=== PATIENT | male | born 1935 | race Caucasian/White ===

== ENCOUNTER 2016-06-06 12:42 | Emergency (ER) | payer OTHER ==
[2016-06-06] MEDS ORDERED: ONDANSETRON DISINTEGRATING 4 MG TAB PO ONE (12:56)
--- NOTE | 2016-06-06 13:45 | EDPHY ---
HPI/HX/ROS/PE/MDM Narrative: CHIEF COMPLAINT: Nausea/vomiting. HISTORY OF PRESENT ILLNESS: The patient is an 80-year-old male with no previous abdominal history who presents with 5 hours of nausea and vomiting that began when he woke up this morning. His nausea has been intermittent. The vomit has been greenish-orange in color. He has no associated abdominal pain or diarrhea. He had a normal BM earlier today. He has an abdominal hernia that has not been repaired yet but this has not changed in any way. He does have some rhinorrhea but no recent sickness or fever. No chills, chest pain, shortness of breath, palpitations, diarrhea, urinary complaints, headache, lightheadedness. REVIEW OF SYSTEMS: Aside from elements discussed in the HPI, a comprehensive 10-point review of systems was reviewed and is negative. PAST MEDICAL HISTORY: Tonsillectomy, hypertension, idiopathic thrombocytopenia , abdominal hernia. SOCIAL HISTORY: . VITAL SIGNS: Reviewed by me GENERAL: Elderly male, answers questions slowly, resting comfortably in no respiratory distress. HEENT: Atraumatic. Eyes: No icterus, no injection. Mouth: dry mucous membranes. No erythema or lesions. Neck: supple with no adenopathy. LUNGS: Clear to auscultation bilaterally, no wheezes, rhonchi or rales. CARDIAC: Regular rate and rhythm, no rubs, murmurs or gallops. ABDOMEN: Soft, nondistended, bowel sounds normal. Right lower quadrant and mid lower quadrant tenderness. No rebound, no guarding. BACK: No CVA tenderness. EXTREMITIES: No trauma. Range of motion is normal throughout. Trace lower extremity edema bilaterally. NEURO: Alert and oriented, grossly nonfocal. SKIN: Warm and dry, no rash. PSYCHIATRIC: Normal mentation, no agitation. Portions of this note were transcribed by a medical collector. I personally performed a history, physical exam, medical decision making, and confirmed accuracy of information the transcribed note. ED Course: 80-year-old male presents with 5 hours of nausea and vomiting. His vomit has been greenish-orange in nature. He denies fever, diarrhea, recent sickness, or other complaints. He does have an abdominal hernia that he has not had surgically repaired. I think it is possible that this hernia could be causing a bowel complication. On exam he is tender in the right lower and mid lower quadrants. We will obtain a CT of the abdomen/pelvis and blood work. An IV was established. He will be given fluids for rehydration. Zofran 4mg ODT administered in triage. WBC elevated at 22.29. Lactic acid ordered. 1515: CT results conveyed to me by staff radiologist. They report wall thickening of the pylorus consistent with gastritis, stranding in fat, sludge in gallbladder, and fluid collection in left hemiscrotum. I independently reviewed the images on the PACS system. See Imaging section for radiologist report. I have discussed these results with the patient at this time and answered his questions. 1538: Reassessed patient. He is feeling "a lot" better than when he presented and has not vomited in the ED. We discussed the results of his CT scan and blood work. He reports that he has a chronically elevated WBC and usually runs 18-19. He also knows about the scrotal swelling. He reports this is a hydrocele that he has had for years but has grown recently. He has an appointment scheduled on the to set a surgical date. We discussed admission. He would like to go home. We will wait for the urine results to come back. 1gm IV Ceftriaxone administered for UTI (50-182 WBC in urine). Dr. Stephens, patient's product management manager at the [facility], was paged. 1625:Unfortunately, we were not able to discuss the patient his blood work with Dr. Stephens. I did discuss the patient's course with the medical physics researcher from Dr. tsang's office, the patient's primary care physician. Their records demonstrate a WBC of 16.8 in April with no diagnosed reason. He has his annual appointment set up for 1pm tomorrow already. Patient has no further vomiting in the emergency department. After receiving fluid he reports feeling significantly improved. He an his family are comfortable being discharged home. Other laboratory evaluation with the exception of the cyst WBC is largely unremarkable. No signs of severe sepsis. Patient has not had a fever. He was given ceftriaxone IV and discharged with Keflex pending the results of the urine culture. The differential diagnosis for the patient's abdominal discomfort and vomiting was considered included but was not limited to appendicitis, bowel obstruction, gastritis, cholecystitis, hernias, gastritis, and urinary tract infection. - Data Points Imaging Results: Imaging Impressions Abdomen CT 06/06/16 13:57 Impression: 1. Possible gastritis in the pylorus. No evidence for free intraperitoneal air. 2. Sludge in the gallbladder. Mild strain is seen in the mesentery inferior to the liver of unknown etiology. Mild focal fatty infiltration of the liver. 3. Constipation. No CT findings for diverticulitis or appendicitis. 4. Enlarged left scrotum with fluid attenuation, which could represent a large hydrocele or cyst. 5. Splenomegaly. 6. Other chronic findings as above. Results called and discussed with Dr. Katey Najera, on June 06, 2016 at 1521 hours. Laboratory Results: Laboratory Results 06/06/16 13:55 06/06/16 13:55 06/06/16 06/06/16 06/06/16 15:35 15:25 13:55 WBC RBC Hgb Hct MCV MCH MCHC RDW Plt Count MPV Neut % (Auto) Lymph % (Auto) [place] % (Auto) Eos % (Auto) Baso % (Auto) Nucleat RBC Rel Count Absolute Neuts (auto) Absolute Lymphs (auto) Absolute Monos (auto) Absolute Eos (auto) Absolute Basos (auto) Absolute Nucleated RBC Immature Gran % Seg Neutrophils % Band Neutrophils % Lymphocytes % Monocytes % Immature Gran # Absolute Seg Neuts Absolute Band Neuts Absolute Lymphocytes Absolute Monocytes Atypical Lymphocytes Platelet Estimate Giant Platelets Polychromasia Basophilic Stippling Microcytic Cells Tear Drop Cells Elliptocytes Schistocytes Smear Review By VBG Lactic Acid 1.0 mmol/L mmol/L (0.7-2.1) Sodium 143 mEq/L mEq/L (134-144) Potassium 4.6 mEq/L mEq/L (3.5-5.2) Chloride 109 mEq/L mEq/L (97-110) Carbon Dioxide 23 mEq/l mEq/l (22-31) Anion Gap 11 mEq/L mEq/L (8-16) BUN 30 mg/dL H mg/dL (7-23) Creatinine 1.3 mg/dL mg/dL (0.7-1.3) Estimated GFR 53 Glucose 125 mg/dL H mg/dL (70-100) Calcium 9.5 mg/dL mg/dL (8.5-10.4) Total Bilirubin 1.2 mg/dL mg/dL (0.1-1.4) Conjugated Bilirubin 0.5 mg/dL mg/dL (0.0-0.5) Unconjugated Bilirubin 0.7 mg/dL mg/dL (0.0-1.1) AST 23 IU/L IU/L (17-59) ALT 31 IU/L IU/L (21-72) Alkaline Phosphatase 62 IU/L IU/L (38-126) Total Protein 7.1 g/dL g/dL (6.3-8.2) Albumin 4.4 g/dL g/dL (3.5-5.0) Lipase 34.0 IU/L IU/L (23-300) Urine Color YELLOW Urine Appearance MODERATELY TURBID Urine pH 5.0 (5.0-7.5) Ur Specific [place] 1.032 H (1.002-1.030) Urine Protein NEGATIVE (NEGATIVE) Urine Ketones NEGATIVE (NEGATIVE) Urine Blood NEGATIVE (NEGATIVE) Urine Nitrate NEGATIVE (NEGATIVE) Urine Bilirubin NEGATIVE (NEGATIVE) Urine Urobilinogen NEGATIVE EU EU (0.2-1.0) Ur Leukocyte Esterase 3+ H (NEGATIVE) Urine RBC 10-15 /hpf H /hpf (0-3) Urine WBC 50-182 /hpf H /hpf (0-3) Ur Epithelial Cells TRACE /lpf /lpf (NONE-1+) Urine Bacteria TRACE /hpf H /hpf (NONE SEEN) Urine Mucus TRACE /lpf /lpf (NONE-1+) Urine Glucose NEGATIVE (NEGATIVE) 06/06/16 13:55 WBC 22.29 10^3/uL H 10^3/uL (3.80-9.50) RBC 4.79 10^6/uL 10^6/uL (4.40-6.38) Hgb 14.2 g/dL g/dL (13.7-17.5) Hct 45.0 % % (40.0-51.0) MCV 93.9 fL fL (81.5-99.8) MCH 29.6 pg pg (27.9-34.1) MCHC 31.6 g/dL L g/dL (32.4-36.7) RDW 18.4 % H % (11.5-15.2) Plt Count 200 10^3/uL 10^3/uL (150-400) MPV 12.2 fL H fL (8.7-11.7) Neut % (Auto) Not Reported Lymph % (Auto) Not Reported [place] % (Auto) Not Reported Eos % (Auto) Not Reported Baso % (Auto) Not Reported Nucleat RBC Rel Count 0.1 % % (0.0-0.2) Absolute Neuts (auto) Not Reported Absolute Lymphs (auto) Not Reported Absolute Monos (auto) Not Reported Absolute Eos (auto) Not Reported Absolute Basos (auto) Not Reported Absolute Nucleated RBC 0.03 10^3/uL H 10^3/uL (0-0.01) Immature Gran % Not Reported Seg Neutrophils % 68 % % Band Neutrophils % 27 % % Lymphocytes % 3 % % Monocytes % 2 % % Immature Gran # Not Reported Absolute Seg Neuts 15.16 10^/uL H 10^/uL (1.70-6.50) Absolute Band Neuts 6.02 10^3/uL H 10^3/uL (0.00-0.70) Absolute Lymphocytes 0.67 10^3/uL L 10^3/uL (1.00-3.00) Absolute Monocytes 0.45 10^3/uL 10^3/uL (0.30-0.80) Atypical Lymphocytes 3+ H Platelet Estimate ADEQUATE (ADEQ) Giant Platelets PRESENT H Polychromasia 1+ H Basophilic Stippling 1+ H Microcytic Cells 1+ H Tear Drop Cells 1+ H Elliptocytes 1+ H Schistocytes 1+ H Smear Review By Stuart SHAFFER MD VBG Lactic Acid Sodium Potassium Chloride Carbon Dioxide Anion Gap BUN Creatinine Estimated GFR Glucose Calcium Total Bilirubin Conjugated Bilirubin Unconjugated Bilirubin AST ALT Alkaline Phosphatase Total Protein Albumin Lipase Urine Color Urine Appearance Urine pH Ur Specific [place] Urine Protein Urine Ketones Urine Blood Urine Nitrate Urine Bilirubin Urine Urobilinogen Ur Leukocyte Esterase Urine RBC Urine WBC Ur Epithelial Cells Urine Bacteria Urine Mucus Urine Glucose Medications Given: Discontinued Medications Sodium Chloride (Ns) 1,000 mls @ 0 mls/hr IV ONCE ONE PRN Reason: Wide Open Stop: 06/06/16 13:57 Last Admin: 06/06/16 14:02 Dose: 1,000 mls Ceftriaxone Sodium/Dextrose (Rocephin 1 Gm (Premix)) 50 mls @ 100 mls/hr IV EDNOW ONE PRN Reason: Protocol Stop: 06/06/16 16:34 Last Admin: 06/06/16 16:15 Dose: 50 mls Ondansetron HCl (Zofran Odt) 4 mg PO EDNOW ONE Stop: 06/06/16 12:57 Last Admin: 06/06/16 13:01 Dose: 4 mg General Time Seen by Provider: 06/06/16 13:36 Initial Vital Signs: Initial Vital Signs Temperature (C) 36.0 C 06/06/16 12:46 Heart Rate 59 L 06/06/16 12:46 Respiratory Rate 18 06/06/16 12:46 Blood Pressure 155/73 H 06/06/16 12:46 O2 Sat (%) 95 06/06/16 12:46 O2 Delivery Mode Room Air Allergies/Adverse Reactions: No Known Allergies Allergy (Verified 06/06/16 12:53) Home Medications: Medication Instructions Recorded ATENOLOL 01/31/09 Anagrelide 01/31/09 Astelin nasal spray 30ml 01/31/09 CIALIS 01/31/09 SIMVASTATIN 01/31/09 TRIAZOLAM 01/31/09 Uroxatral 01/31/09 Cephalexin [Keflex (RX)] 500 mg PO TID 7 Days 06/06/16 Ondansetron Odt [Zofran Odt 4 mg 4 mg PO Q6 PRN #8 tab 06/06/16 (RX)] Tamsulosin HCl 06/06/16 Departure - Departure Disposition: Home, Routine, Self-Care Clinical Impression: Nausea & vomiting Qualifiers: Vomiting type: unspecified Vomiting Intractability: non-intractable Qualified Code(s): R11.2 - Nausea with vomiting, unspecified Gastritis Qualifiers: Gastritis type: unspecified gastritis Chronicity: acute Gastritis bleeding: presence of bleeding unspecified Qualified Code(s): K29.00 - Acute gastritis without bleeding Leukocytosis Qualifiers: Leukocytosis type: unspecified Qualified Code(s): D72.829 - Elevated white blood cell count, unspecified UTI (urinary tract infection) Qualifiers: Urinary tract infection type: site unspecified Hematuria presence: without hematuria Qualified Code(s): N39.0 - Urinary tract infection, site not specified Condition: Good Instructions: Urinary Tract Infection in Men (ED), Acute Nausea and Vomiting ( ED) Additional Instructions: Follow up with your primary care physician, Dr Cason, tomorrow as scheduled at 1pm. Take Keflex as instructed. Drink plenty of fluids and be sure to get rest. Start with clear fluids for the next 24 hours and then advance diet as tolerable. Return to the emergency department immediately for fever, vomiting not controlled with zofran, diarrhea, or any other serious worsening of condition. You may use Zofran as needed for recurrent nausea and vomiting. Referrals: SKY CASON [Primary Care Provider] - As per Instructions Prescriptions: Cephalexin [Keflex (RX)] 500 mg PO TID 7 Days Ondansetron Odt [Zofran Odt 4 mg (RX)] 4 mg PO Q6 PRN #8 tab PRN Reason: Nausea Report Scribed for: Katey Najera Report Scribed by: Leonel Nazario Date of Report: 06/06/16 Time of Report: 13:37
[2016-06-06] MEDS ORDERED: NS 1,000 ML IV ONE (13:56)
[2016-06-06 14:12] LABS: ABSOLUTE NRBC COUNT 0.03 10^3/uL (0-0.01); ADD DIFF? YES; ADD MORPH? NO; ATYPICAL LYMPHOCYTE FLAG 0 (0-99); FRAGMENT RBC FLAG 20 (0-99); HEMOGLOBIN 14.2 g/dL (13.7-17.5); LEFT SHIFT FLG 50 (0-99); LIPEMIA HEMOLYSIS FLAG 80 (0-99); MEAN CELL HEMOGLOBIN 29.6 pg (27.9-34.1); MEAN CELL HEMOGLOBIN CONCENTR. 31.6 g/dL (32.4-36.7); MEAN CELL VOLUME 93.9 fL (81.5-99.8); MEAN PLATELET VOLUME 12.2 fL (8.7-11.7); NRBC-AUTO% 0.1 % (0.0-0.2); PLATELET CLUMPS FLAG 10 (0-99); PLATELET COUNT 200 10^3/uL (150-400); RED BLOOD CELL COUNT 4.79 10^6/uL (4.40-6.38); RED CELL DISTRIBUTION WIDTH 18.4 % (11.5-15.2)
[2016-06-06 14:19] LABS: ALANINE AMINOTRANSFERASE 31 IU/L (21-72); ALBUMIN 4.4 g/dL (3.5-5.0); ALKALINE PHOSPHATASE 62 IU/L (38-126); ANION GAP 11 mEq/L (8-16); ASPARTATE AMINOTRANSFERASE 23 IU/L (17-59); BILIRUBIN,TOTAL 1.2 mg/dL (0.1-1.4); BILIRUBIN-CONJUGATED 0.5 mg/dL (0.0-0.5); BILIRUBIN-UNCONJUGATED 0.7 mg/dL (0.0-1.1); CALCIUM 9.5 mg/dL (8.5-10.4); CARBON DIOXIDE 23 mEq/l (22-31); CHLORIDE 109 mEq/L (97-110); CREATININE 1.3 mg/dL (0.7-1.3); GLOMERULAR FILTRATION RATE 53; GLUCOSE 125 mg/dL (70-100); POTASSIUM 4.6 mEq/L (3.5-5.2); SODIUM 143 mEq/L (134-144); TOTAL PROTEIN 7.1 g/dL (6.3-8.2)
--- NOTE | 2016-06-06 14:26 | CPEKG ---
Heart Rate: 64 RR Interval: 938 P-R Interval: 176 QRSD Interval: 102 QT Interval: 440 QTC Interval: 454 P [place]: 69 QRS [place]: 62 T Wave [place]: 30 EKG Severity - NORMAL ECG - EKG Impression: SINUS RHYTHM Electronically Signed By: Jesse Maciel 06-Jun-2016 15:29:25
[2016-06-06] MEDS ORDERED: IOPAMIDOL (ISOVUE-300) 100 ML BTL IV ONE (14:34)
[2016-06-06 14:58] LABS: ELLIPTOCYTES 1+; MICROCYTES 1+; PLATELET ESTIMATE ADEQUATE (ADEQ); POLYCHROMASIA 1+; SCHISTOCYTES 1+
[2016-06-06 14:59] LABS: GIANT PLATELETS PRESENT
[2016-06-06 15:44] LABS: COLOR YELLOW; LEUKOCYTE ESTERASE,URINE 3+ (NEGATIVE); NITRITE,URINE NEGATIVE (NEGATIVE)
[2016-06-06 15:51] LABS: MUCUS TRACE /lpf (NONE-1+); WBC,URINE 50-182 /hpf (0-3)
[2016-06-06 16:03] VITALS: BP 142/78; PULSE 64; RESP 16; TEMP 98.1; O2SAT 94
[2016-06-06 16:03] LABS: BACTERIA TRACE /hpf (NONE SEEN)
[2016-06-06 16:46] LABS: ADD SCAN? YES; SCAN POSITIVE
== END 2016-06-06 17:20 | disposition home or self-care (01) ==
DX: K29.00 Acute gastritis without bleeding (principal); D72.829 Elevated white blood cell count, unspecified; N39.0 Urinary tract infection, site not specified; B96.89 Other specified bacterial agents as the cause of diseases classified elsewhere; I10 Essential (primary) hypertension
CPT/HCPCS: 74177; 93005; 96361; 96365; 99285; J0696; Q9967

== ENCOUNTER 2016-10-17 10:59 | Emergency (ER) | payer OTHER ==
[2016-10-17 11:09] VITALS: TEMP 97.5
--- NOTE | 2016-10-17 12:24 | EDPHY ---
H & P Time Seen by Provider: 10/17/16 11:24 HPI/ROS: CHIEF COMPLAINT: Bleeding from surgical site HISTORY OF PRESENT ILLNESS: Patient is an 81-year-old male who presents to the emergency department with ongoing bleeding from his hydrocele surgery 03/06/2013. This was performed [facility] by Dr. Ahuja. Patient states that he has been bleeding since discharge. He states that his scrotal size has remained constant. It is not increased. He has no significant tenderness or discomfort. He has had no fevers or chills. No nausea or vomiting. Patient does not take blood thinner. He is currently taking doxycycline. REVIEW OF SYSTEMS: My complete review of systems is negative except as mentioned in the HPI. Past Medical/Surgical History: Includes high cholesterol, hypertension, ITP, hydrocele Past surgical history: Tonsillectomy, hernia surgery, hydrocele repair Social history: The patient is . He does not smoke. Smoking Status: Never smoked Physical Exam: Vitals noted GENERAL: Well-appearing, in no acute distress, alert. HEENT: Eyes normal to inspection, normal pharynx, no signs of dehydration. NECK: No thyromegaly, no lymphadenopathy, supple. RESPIRATORY: Clear to auscultation bilaterally, no rales, rhonchi or wheezing. CVS: Regular rate and rhythm, no rubs, murmurs, or gallops. ABDOMEN: Soft, nontender, nondistended, no organomegaly. : Patient has an enlarged scrotum. The patient states this is improve from his hydrocele prior to surgery. Is remained the same size. There is significant bruising. Inferior scrotal incision has dehisced centrally. There is slight amount of oozing blood. No palpable mass. BACK: Normal to inspection, no CVA tenderness. SKIN: Normal color, no rash, warm, dry. No pallor. EXTREMITIES: No pedal edema, no joint swelling. NEURO/PSYCH: Alert and oriented, normal mood and affect Constitutional: Initial Vital Signs Temperature (C) 36.4 C 10/17/16 11:06 Heart Rate 65 10/17/16 11:06 Respiratory Rate 18 10/17/16 11:06 Blood Pressure 125/49 H 10/17/16 11:06 O2 Sat (%) 95 10/17/16 11:06 O2 Delivery Mode Room Air Allergies/Adverse Reactions: No Known Allergies Allergy (Verified 10/17/16 11:03) Home Medications: Medication Instructions Recorded ATENOLOL 01/31/09 Anagrelide 01/31/09 Astelin nasal spray 30ml 01/31/09 CIALIS 01/31/09 SIMVASTATIN 01/31/09 TRIAZOLAM 01/31/09 Uroxatral 01/31/09 Ondansetron Odt [Zofran Odt 4 mg 4 mg PO Q6 PRN #8 tab 06/06/16 (RX)] Tamsulosin HCl 06/06/16 CLONAZEPAM 10/17/16 Doxycycline Inj 10/17/16 Finasteride 10/17/16 Medical Decision Making ED Course/Re-evaluation: In the emergency department I discussed possible etiologies with the patient. Answered all his questions. Dr. Ahuja was paged. I was informed by [facility] that Dr. Ahuja is not [employer] today. [facility] [employer] professional [employer] urologist was paged. I was still awaiting call back. I re-paged Dr. Ahuja. Spoke with Dr. Bryant. She recommended the patient just place a dressing over the incision site. Does not feel needs to be repaired at this time. It will heal by secondary intention. She requests follow up with Dr. Ahuja. Patient's hematocrit was 38. I discussed the findings with the patient. I answered all his questions. He is given warnings prior to leaving. He will return with worsening symptoms. Differential Diagnosis: My differential includes but is not limited to surgical complication, wound dehiscence, wound infection, - Data Points Laboratory Results: Laboratory Results 10/17/16 12:40 10/17/16 12:40 10/17/16 10/17/16 10/17/16 13:30 12:40 12:40 WBC 19.07 10^3/uL H 10^3/uL (3.80-9.50) RBC 4.20 10^6/uL L 10^6/uL (4.40-6.38) Hgb 12.1 g/dL L g/dL (13.7-17.5) Hct 38.3 % L % (40.0-51.0) MCV 91.2 fL fL (81.5-99.8) MCH 28.8 pg pg (27.9-34.1) MCHC 31.6 g/dL L g/dL (32.4-36.7) RDW 19.9 % H % (11.5-15.2) Plt Count 213 10^3/uL 10^3/uL (150-400) MPV 11.8 fL H fL (8.7-11.7) Neut % (Auto) Not Reported Lymph % (Auto) Not Reported [place] % (Auto) Not Reported Eos % (Auto) Not Reported Baso % (Auto) Not Reported Nucleat RBC Rel Count 0.2 % % (0.0-0.2) Absolute Neuts (auto) Not Reported Absolute Lymphs (auto) Not Reported Absolute Monos (auto) Not Reported Absolute Eos (auto) Not Reported Absolute Basos (auto) Not Reported Absolute Nucleated RBC 0.03 10^3/uL H 10^3/uL (0-0.01) Immature Gran % Not Reported Seg Neutrophils % 74 % % Band Neutrophils % 12 % % Lymphocytes % 3 % % Monocytes % 2 % % Eosinophils % 4 % % Basophils % 1 % % Metamyelocytes % 4 % % Immature Gran # Not Reported Absolute Seg Neuts 14.11 10^/uL H 10^/uL (1.70-6.50) Absolute Band Neuts 2.29 10^3/uL H 10^3/uL (0.00-0.70) Absolute Lymphocytes 0.57 10^3/uL L 10^3/uL (1.00-3.00) Absolute Monocytes 0.38 10^3/uL 10^3/uL (0.30-0.80) Absolute Eosinophils 0.76 10^3/uL H 10^3/uL (0.03-0.40) Absolute Basophils 0.19 10^3/uL H 10^3/uL (0.02-0.10) Absolute Metamyelocyte 0.76 10^3/mL H 10^3/mL (0.00-0.00) Platelet Estimate ADEQUATE (ADEQ) Polychromasia 1+ H Tear Drop Cells 2+ H Elliptocytes 1+ H Smear Review By Pending PT Pending INR Pending APTT Pending Sodium 142 mEq/L mEq/L (134-144) Potassium 4.3 mEq/L mEq/L (3.5-5.2) Chloride 107 mEq/L mEq/L (97-110) Carbon Dioxide 25 mEq/l mEq/l (22-31) Anion Gap 10 mEq/L mEq/L (8-16) BUN 28 mg/dL H mg/dL (7-23) Creatinine 1.2 mg/dL mg/dL (0.7-1.3) Estimated GFR 58 Glucose 116 mg/dL H mg/dL (70-100) Calcium 9.4 mg/dL mg/dL (8.5-10.4) Departure - Departure Disposition: Home, Routine, Self-Care Clinical Impression: Wound dehiscence Condition: Good Instructions: Wound Dehiscence (ED) Additional Instructions: Continued to apply pressure to your wound site. If you have increased bleeding pulsatile bleeding return to the emergency department. Return with lightheadedness or dizziness. You close follow-up with Dr. Ahuja. Referrals: SKY CASTORENA [Primary Care Provider] - As per Instructions Seymour Beltran [Other] - 5-7 days, call for appt.
[2016-10-17 12:57] LABS: ABSOLUTE NRBC COUNT 0.03 10^3/uL (0-0.01); ADD DIFF? YES; ADD MORPH? NO; ADD SCAN? NO; ATYPICAL LYMPHOCYTE FLAG 0 (0-99); FRAGMENT RBC FLAG 40 (0-99); HEMATOCRIT 38.3 % (40.0-51.0); HEMOGLOBIN 12.1 g/dL (13.7-17.5); LEFT SHIFT FLG 60 (0-99); LIPEMIA HEMOLYSIS FLAG 80 (0-99); MEAN CELL HEMOGLOBIN 28.8 pg (27.9-34.1); MEAN CELL HEMOGLOBIN CONCENTR. 31.6 g/dL (32.4-36.7); MEAN CELL VOLUME 91.2 fL (81.5-99.8); MEAN PLATELET VOLUME 11.8 fL (8.7-11.7); NRBC-AUTO% 0.2 % (0.0-0.2); PLATELET CLUMPS FLAG 0 (0-99); PLATELET COUNT 213 10^3/uL (150-400); RED CELL DISTRIBUTION WIDTH 19.9 % (11.5-15.2)
[2016-10-17 13:23] LABS: ELLIPTOCYTES 1+; PLATELET ESTIMATE ADEQUATE (ADEQ); POLYCHROMASIA 1+
[2016-10-17 13:25] LABS: ANION GAP 10 mEq/L (8-16); CALCIUM 9.4 mg/dL (8.5-10.4); CARBON DIOXIDE 25 mEq/l (22-31); CHLORIDE 107 mEq/L (97-110); CREATININE 1.2 mg/dL (0.7-1.3); GLOMERULAR FILTRATION RATE 58; GLUCOSE 116 mg/dL (70-100); POTASSIUM 4.3 mEq/L (3.5-5.2); SODIUM 142 mEq/L (134-144)
[2016-10-17 13:48] LABS: APTT 32.8 SEC (23.0-38.0); INR 1.31 (0.83-1.16); PROTIME(PATIENT) 16.3 SEC (12.0-15.0)
[2016-10-17 14:02] VITALS: BP 122/52; PULSE 64; RESP 16; O2SAT 97
== END 2016-10-17 14:00 | disposition home or self-care (01) ==
DX: T81.32XA Disruption of internal operation (surgical) wound, not elsewhere classified, initial encounter (principal); I10 Essential (primary) hypertension; Y82.8 Other medical devices associated with adverse incidents

== ENCOUNTER 2017-02-08 12:22 | Inpatient (IN) | payer OTHER ==
--- NOTE | 2017-02-08 12:59 | EDPHY ---
H & P Stated Complaint: Diarrhea x 1 week (dark stool ),with intermittant abdo pain. Time Seen by Provider: 02/08/17 12:59 HPI/ROS: CHIEF COMPLAINT: Dark stool HISTORY OF PRESENT ILLNESS: The patient presents to the emergency department with a 2 day history of dark stool. He has had a 1 week history of loose stool and diarrhea. He did take Pepto-Bismol earlier in the week. He has mild crampy abdominal pain. He has no prior history of GI bleeding. Past surgical history significant only for hernia repair. The patient takes only a baby aspirin on a daily basis. The patient reports an unremarkable colonoscopy several years ago. He was told that further colonoscopies were not indicated based upon his age. The patient denies any fever, cough or congestion. The patient denies additional acute complaints. The patient reports he has been on ibuprofen at night for a long time. REVIEW OF SYSTEMS: A comprehensive 10 point review of systems is otherwise negative aside from elements mentioned in the history of present illness. Source: Patient Exam Limitations: No limitations - Personal History Current Tetanus Diphtheria and Acellular Pertussis (TDAP): Yes - Medical/Surgical History Hx Asthma: No Hx Chronic Respiratory Disease: No Hx Diabetes: No Hx Cardiac Disease: No Hx Renal Disease: Yes Hx Cirrhosis: No Hx Alcoholism: No Hx HIV/AIDS: No Hx Splenectomy or Spleen Trauma: No Other PMH: Tonsillectomy, HTN, Idiopathtic, thrombocytic cytopenia, elevated creatinine. hydrocele/hernia surg. IBS - Social History Smoking Status: Never smoked - Physical Exam Exam: General Appearance: Alert, no distress Eyes: Pupils equal and round no pallor or injection ENT, Mouth: Mucous membranes moist Respiratory: There are no retractions, lungs are clear to auscultation Cardiovascular: Regular rate and rhythm Gastrointestinal: Abdomen is soft and nontender, no masses, bowel sounds normal Rectal: Black colored stool Neurological: A&O, normal motor function, normal sensory exam, normal cranial nerves Skin: Warm and dry, no rashes Musculoskeletal: Neck is supple nontender Extremities: symmetrical, full range of motion Constitutional: Initial Vital Signs Temperature (C) 36.6 C 02/08/17 12:24 Heart Rate 71 02/08/17 12:24 Respiratory Rate 16 02/08/17 12:24 Blood Pressure 117/52 L 02/08/17 12:24 O2 Sat (%) 99 02/08/17 12:24 O2 Delivery Mode Room Air Allergies/Adverse Reactions: No Known Allergies Allergy (Verified 10/17/16 11:03) Home Medications: Medication Instructions Recorded ATENOLOL 01/31/09 Anagrelide 01/31/09 Astelin nasal spray 30ml 01/31/09 CIALIS 01/31/09 SIMVASTATIN 01/31/09 TRIAZOLAM 01/31/09 Uroxatral 01/31/09 Ondansetron Odt [Zofran Odt 4 mg 4 mg PO Q6 PRN #8 tab 06/06/16 (RX)] Tamsulosin HCl 06/06/16 CLONAZEPAM 10/17/16 Doxycycline Inj 10/17/16 Finasteride 10/17/16 Medical Decision Making ED Course/Re-evaluation: The patient presents to the ED for several days of dark stool consistent with melena. The patient has heme-positive black stool on exam. The patient has chronic leukocytosis. The patient is hemodynamically stable. His initial hematocrit is reassuring. The patient received 40 mg of IV Protonix. He has an elevated BUN consistent with an upper GI bleed. Consultation was made with the hospitalist service. The patient will be admitted to the hospital for observation. I re-evaluated the patient at 2:00 p.m.. He is resting comfortably in the room , blood pressure is 110/57 with a heart rate of 69. Differential Diagnosis: Differential diagnosis considered includes upper GI bleed, lower GI bleed, critical anemia, peptic ulcer disease - Data Points Laboratory Results: Laboratory Results 02/08/17 13:08 02/08/17 13:08 02/08/17 02/08/17 02/08/17 13:20 13:08 13:08 WBC 24.58 10^3/uL H 10^3/uL (3.80-9.50) RBC 4.18 10^6/uL L 10^6/uL (4.40-6.38) Hgb 12.5 g/dL L g/dL (13.7-17.5) Hct 38.1 % L % (40.0-51.0) MCV 91.1 fL fL (81.5-99.8) MCH 29.9 pg pg (27.9-34.1) MCHC 32.8 g/dL g/dL (32.4-36.7) RDW 20.7 % H % (11.5-15.2) Plt Count 174 10^3/uL 10^3/uL (150-400) MPV 10.9 fL fL (8.7-11.7) Neut % (Auto) Not Reported Lymph % (Auto) Not Reported Garza % (Auto) Not Reported Eos % (Auto) Not Reported Baso % (Auto) Not Reported Nucleat RBC Rel Count 0.1 % % (0.0-0.2) Absolute Neuts (auto) Not Reported Absolute Lymphs (auto) Not Reported Absolute Monos (auto) Not Reported Absolute Eos (auto) Not Reported Absolute Basos (auto) Not Reported Absolute Nucleated RBC 0.02 10^3/uL H 10^3/uL (0-0.01) Immature Gran % Not Reported Seg Neutrophils % 86 % % Band Neutrophils % 6 % % Lymphocytes % 4 % % Monocytes % 1 % % Metamyelocytes % 3 % % Immature Gran # Not Reported Absolute Seg Neuts 21.14 10^/uL H 10^/uL (1.70-6.50) Absolute Band Neuts 1.47 10^3/uL H 10^3/uL (0.00-0.70) Absolute Lymphocytes 0.98 10^3/uL L 10^3/uL (1.00-3.00) Absolute Monocytes 0.25 10^3/uL L 10^3/uL (0.30-0.80) Absolute Metamyelocyte 0.74 10^3/mL H 10^3/mL (0.00-0.00) Platelet Estimate ADEQUATE (ADEQ) Large Platelets PRESENT H Polychromasia 1+ H Tear Drop Cells 1+ H Elliptocytes 1+ H PT INR Sodium 145 mEq/L H mEq/L (134-144) Potassium 4.8 mEq/L mEq/L (3.5-5.2) Chloride 109 mEq/L mEq/L (97-110) Carbon Dioxide 23 mEq/l mEq/l (22-31) Anion Gap 13 mEq/L mEq/L (8-16) BUN 70 mg/dL H mg/dL (7-23) Creatinine 1.2 mg/dL mg/dL (0.7-1.3) Estimated GFR 58 Glucose 107 mg/dL H mg/dL (70-100) Calcium 9.6 mg/dL mg/dL (8.5-10.4) Total Bilirubin 0.8 mg/dL mg/dL (0.1-1.4) Conjugated Bilirubin 0.3 mg/dL mg/dL (0.0-0.5) Unconjugated Bilirubin 0.5 mg/dL mg/dL (0.0-1.1) AST 29 IU/L IU/L (17-59) ALT 30 IU/L IU/L (21-72) Alkaline Phosphatase 57 IU/L IU/L (38-126) Total Protein 6.3 g/dL g/dL (6.3-8.2) Albumin 3.8 g/dL g/dL (3.5-5.0) Lipase 26 IU/L IU/L (23-300) Stool Occult Bld Scrn POSITIVE H (NEGATIVE) 02/08/17 13:05 WBC RBC Hgb Hct MCV MCH MCHC RDW Plt Count MPV Neut % (Auto) Lymph % (Auto) Garza % (Auto) Eos % (Auto) Baso % (Auto) Nucleat RBC Rel Count Absolute Neuts (auto) Absolute Lymphs (auto) Absolute Monos (auto) Absolute Eos (auto) Absolute Basos (auto) Absolute Nucleated RBC Immature Gran % Seg Neutrophils % Band Neutrophils % Lymphocytes % Monocytes % Metamyelocytes % Immature Gran # Absolute Seg Neuts Absolute Band Neuts Absolute Lymphocytes Absolute Monocytes Absolute Metamyelocyte Platelet Estimate Large Platelets Polychromasia Tear Drop Cells Elliptocytes PT 16.0 SEC H SEC (12.0-15.0) INR 1.26 H (0.83-1.16) Sodium Potassium Chloride Carbon Dioxide Anion Gap BUN Creatinine Estimated GFR Glucose Calcium Total Bilirubin Conjugated Bilirubin Unconjugated Bilirubin AST ALT Alkaline Phosphatase Total Protein Albumin Lipase Stool Occult Bld Scrn Departure - Departure Disposition: [facility] Inpatient Acute Clinical Impression: Upper GI bleed Condition: Fair Referrals: SKY CASTORENA [Primary Care Provider] - As per Instructions
[2017-02-08 13:15] LABS: ABSOLUTE NRBC COUNT 0.02 10^3/uL (0-0.01); ADD DIFF? YES; ADD MORPH? YES; ADD SCAN? NO; ATYPICAL LYMPHOCYTE FLAG 0 (0-99); FRAGMENT RBC FLAG 40 (0-99); HEMATOCRIT 38.1 % (40.0-51.0); HEMOGLOBIN 12.5 g/dL (13.7-17.5); LEFT SHIFT FLG 50 (0-99); LIPEMIA HEMOLYSIS FLAG 80 (0-99); MEAN CELL HEMOGLOBIN 29.9 pg (27.9-34.1); MEAN CELL HEMOGLOBIN CONCENTR. 32.8 g/dL (32.4-36.7); MEAN CELL VOLUME 91.1 fL (81.5-99.8); MEAN PLATELET VOLUME 10.9 fL (8.7-11.7); NRBC-AUTO% 0.1 % (0.0-0.2); PLATELET CLUMPS FLAG 10 (0-99); PLATELET COUNT 174 10^3/uL (150-400); RED BLOOD CELL COUNT 4.18 10^6/uL (4.40-6.38)
[2017-02-08 13:20] LABS: RED CELL DISTRIBUTION WIDTH 20.7 % (11.5-15.2)
[2017-02-08 13:36] LABS: ALANINE AMINOTRANSFERASE 30 IU/L (21-72); ALBUMIN 3.8 g/dL (3.5-5.0); ALKALINE PHOSPHATASE 57 IU/L (38-126); ANION GAP 13 mEq/L (8-16); ASPARTATE AMINOTRANSFERASE 29 IU/L (17-59); BILIRUBIN,TOTAL 0.8 mg/dL (0.1-1.4); BILIRUBIN-CONJUGATED 0.3 mg/dL (0.0-0.5); BILIRUBIN-UNCONJUGATED 0.5 mg/dL (0.0-1.1); CALCIUM 9.6 mg/dL (8.5-10.4); CARBON DIOXIDE 23 mEq/l (22-31); CHLORIDE 109 mEq/L (97-110); CREATININE 1.2 mg/dL (0.7-1.3); GLOMERULAR FILTRATION RATE 58; GLUCOSE 107 mg/dL (70-100); POTASSIUM 4.8 mEq/L (3.5-5.2); SODIUM 145 mEq/L (134-144); TOTAL PROTEIN 6.3 g/dL (6.3-8.2)
[2017-02-08 13:46] LABS: INR 1.26 (0.83-1.16)
[2017-02-08 13:47] LABS: PLATELET ESTIMATE ADEQUATE (ADEQ)
[2017-02-08 13:48] LABS: LARGE PLATELETS PRESENT
[2017-02-08 13:50] LABS: ELLIPTOCYTES 1+; POLYCHROMASIA 1+
[2017-02-08] MEDS ORDERED: PANTOPRAZOLE SODIUM 40 MG VIAL IVP ONE (13:51)
[2017-02-08] MEDS ORDERED: ACETAMINOPHEN 325 MG TAB PO PRN (15:24)
[2017-02-08] MEDS ORDERED: ONDANSETRON DISINTEGRATING 4 MG TAB PO PRN (15:24)
[2017-02-08] MEDS ORDERED: ONDANSETRON 4 MG/2 ML VIAL IVP PRN (15:24)
[2017-02-08] MEDS ORDERED: 1/2 NS 1,000 ML IV SCH (15:30)
--- NOTE | 2017-02-08 15:48 | GHP ---
[f rep st] HISTORY AND PHYSICAL DATE OF ADMISSION: 02/08/2017 CHIEF COMPLAINT: Melena. HISTORY OF PRESENT ILLNESS: An 81-year-old male with no previous history of gastrointestinal bleedin g or gastrointestinal problems. He presents with 1 week of occasional melena. He has also had some watery-type stools. He has also had abdominal pain associated with some urgency. He takes aspirin d aily, which he has been doing for 25 years. He also takes some ibuprofen at night which he has also been on for some time. No dizziness or chest pain. He has had some mild weight loss over the last y ear or so. REVIEW OF SYSTEMS: A 10-point review of systems was obtained, and other than what was stated, was farida mac. PAST MEDICAL HISTORY: 1. Hypertension. 2. Gout. 3. 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 4. BPH. SOCIAL HISTORY: No smoking. Very occasional alcohol. He is . FAMILY HISTORY: Reviewed and not contributory. PHYSICAL EXAMINATION: VITAL SIGNS: Afebrile, blood pressure is 117/52, heart rate 71, oxygen satura tion 99% on room air. GENERAL: The patient is well developed in no apparent distress. HEENT: Neris cteric sclerae. Extraocular movements intact. Moist mucous membranes. NECK: Supple. No thyromega ly. LUNGS: Good effort. Clear to auscultation bilaterally. CARDIOVASCULAR: Regular rate and rhyt hm. No murmurs, rubs, or gallops. ABDOMEN: Positive bowel sounds. Soft, nontender, nondistended. No hepatosplenomegaly. EXTREMITIES: No clubbing, cyanosis, or edema. SKIN: Without rash. Warm, dry, intact. NEUROLOGIC: Moving all 4 extremities equally. PSYCHIATRIC: Normal mood and affect. LABORATORY DATA: White blood cell count elevated at 24,000 but it was 22,000 six months ago. Hemogl obin is 12 and platelets are 134. Sodium 145. BUN is elevated at 70 with a normal creatinine of 1.2 . Stool for occult blood is positive. ASSESSMENT: This is an 81-year-old male presenting with probable upper gastrointestinal bleed. PLAN: 1. Upper gastrointestinal bleed. The patient is hemodynamically stable. He does have an elevated B UN suggesting an upper bleed. We will admit this patient overnight. We will discuss with GI probabl y for a possible EGD in the morning. We will start Protonix. Hold his aspirin. 2. Mild anemia. We will see if this decreases with fluid. 3. Hypertension. We will continue his atenolol with some holding parameters. 4. Elevated white blood cell count. This appears to be chronic. /[id number]/MODL
[2017-02-08] MEDS: ANAGRELIDE HCL 0.5 MG PO SCH (20:12)
[2017-02-08] MEDS: PANTOPRAZOLE SODIUM 40 MG VIAL IVP SCH (20:25)
[2017-02-08] MEDS: IPRATROPIUM 0.06% NASAL SPRAY EACHNARE SCH (20:27)
[2017-02-08] MEDS: TRIAZOLAM 0.25 MG TAB PO PRN (22:30)
[2017-02-09 05:43] LABS: ALANINE AMINOTRANSFERASE 25 IU/L (21-72); ALBUMIN 2.9 g/dL (3.5-5.0); ALKALINE PHOSPHATASE 50 IU/L (38-126); ANION GAP 10 mEq/L (8-16); ASPARTATE AMINOTRANSFERASE 18 IU/L (17-59); BILIRUBIN,TOTAL 0.8 mg/dL (0.1-1.4); CALCIUM 9.1 mg/dL (8.5-10.4); CARBON DIOXIDE 23 mEq/l (22-31); CHLORIDE 111 mEq/L (97-110); CREATININE 1.3 mg/dL (0.7-1.3); GLOMERULAR FILTRATION RATE 53; GLUCOSE 79 mg/dL (70-100); POTASSIUM 3.9 mEq/L (3.5-5.2); SODIUM 144 mEq/L (134-144); TOTAL PROTEIN 4.9 g/dL (6.3-8.2)
[2017-02-09 05:50] LABS: ABSOLUTE NRBC COUNT 0.03 10^3/uL (0-0.01); ADD DIFF? YES; ATYPICAL LYMPHOCYTE FLAG 0 (0-99); FRAGMENT RBC FLAG 40 (0-99); HEMATOCRIT 29.4 % (40.0-51.0); HEMOGLOBIN 9.5 g/dL (13.7-17.5); LEFT SHIFT FLG 70 (0-99); LIPEMIA HEMOLYSIS FLAG 80 (0-99); MEAN CELL HEMOGLOBIN 29.6 pg (27.9-34.1); MEAN CELL HEMOGLOBIN CONCENTR. 32.3 g/dL (32.4-36.7); MEAN CELL VOLUME 91.6 fL (81.5-99.8); MEAN PLATELET VOLUME 11.2 fL (8.7-11.7); NRBC-AUTO% 0.2 % (0.0-0.2); PLATELET CLUMPS FLAG 20 (0-99); PLATELET COUNT 160 10^3/uL (150-400); RED BLOOD CELL COUNT 3.21 10^6/uL (4.40-6.38)
[2017-02-09 05:54] LABS: RED CELL DISTRIBUTION WIDTH 20.2 % (11.5-15.2)
[2017-02-09 05:55] LABS: ADD MORPH? NO; ADD SCAN? NO
[2017-02-09 06:22] LABS: PLATELET ESTIMATE ADEQUATE (ADEQ)
[2017-02-09 06:23] LABS: MACROCYTES 1+
[2017-02-09] MEDS: ANAGRELIDE HCL 0.5 MG PO SCH ×2 (08:52→19:52)
[2017-02-09] MEDS: ALLOPURINOL 300 MG TAB PO SCH (08:52)
[2017-02-09] MEDS: PANTOPRAZOLE SODIUM 40 MG VIAL IVP SCH ×2 (08:52→19:38)
[2017-02-09] MEDS: TAMSULOSIN HCL 0.4 MG CAP PO SCH (08:52)
[2017-02-09] MEDS: FINASTERIDE 5 MG TAB PO SCH (08:52)
[2017-02-09] MEDS: ATENOLOL 50 MG TAB PO SCH (08:53)
--- NOTE | 2017-02-09 09:31 | HOSPPROG ---
Hospitalist Progress Note Assessment/Plan: Patient is an 81 y/o male who has had some intermittent melena. Today is my first encounter w the patient, chart reviewed. *Upper GI bleed -h/h have trended down -s/p endoscopy which showed an esophageal ulcer, small hiatal hernia -will need ppi bid x 2 months *anemia -will recheck an H & H to assure stability *HTN -110/69 *leukocytosis -has been high since May -should get further f/u with PCP in OP setting *plan. Reviewed his care with Dr Panda/ the patient lost quite a bit of blood and should be monitored overnight for stability. Will continue clears tonight and if stable, will initiate reg diet in the morning. He will require another midnight stay making him IP. Subjective: Nicholas is feeling well, has no complaints. Objective: Vital Signs Temp Pulse Resp BP Pulse Ox 36.7 C 71 16 110/69 96 02/09/17 08:20 02/09/17 08:53 02/09/17 08:20 02/09/17 08:53 02/09/17 08:20 Laboratory Results 02/09/17 04:27 02/09/17 04:27 02/08/17 02/09/17 02/10/17 05:59 05:59 05:59 Intake Total 350 Balance 350 PT 16.0 SEC (12.0-15.0) H 02/08/17 13:05 INR 1.26 (0.83-1.16) H 02/08/17 13:05 - Physical Exam Constitutional: no apparent distress, appears nourished, not in pain Eyes: PERRL Ears, Nose, Mouth, Throat: hearing normal Cardiovascular: regular rate and rhythym Respiratory: no respiratory distress Gastrointestinal: normoactive bowel sounds Skin: warm, No normal color (pale) Musculoskeletal: full muscle strength Neurologic: AAOx3 Psychiatric: interacting appropriately ICD10 Worksheet Patient Problems: Problems Problem Status Onset Upper GI bleed Acute
--- NOTE | 2017-02-09 09:55 | PDANEPAE ---
ANE History of Present Illness EGD for tarry stools, anemia ANE Past Medical History - Cardiovascular History Hx Hypertension: Yes - Pulmonary History Hx Oxygen in Use at Home: No Hx Sleep Apnea: No Sleep Apnea Screening Result - Last Documented: Positive - Endocrine History Hx Diabetes: No Hypothyroid: No Obesity: no - GI History Hx Gastrointestinal Disorders: Yes Gastrointestinal History Comment: IBS - Chronic Pain History Chronic Pain: No ANE Review of Systems Review of Systems: ANE Patient History - Allergies Allergies/Adverse Reactions: No Known Allergies Allergy (Verified 10/17/16 11:03) - Home Medications Home Medications: Anagrelide HCl 0.5 mg PO BID 01/31/09 [Last Taken 02/07/17 21:00] Atenolol [Tenormin 50 mg (*)] 50 mg PO DAILY 01/31/09 [Last Taken 02/07/17] Triazolam [Halcion 0.25MG (*)] 0.125 - 0.25 mg PO HS 01/31/09 [Last Taken 0.125mg] Tamsulosin HCl [Flomax 0.4 MG (*)] 0.4 mg PO DAILY 06/06/16 [Last Taken 02/07/17 ] Finasteride [Proscar 5 MG (*)] 5 mg PO DAILY 10/17/16 [Last Taken 02/07/17] Allopurinol [Allopurinol 300 MG (RX)] 300 mg PO DAILY 02/08/17 [Last Taken 02/07] Ascorbic Acid [Vitamin C 500 mg (*)] 500 mg PO DAILY 02/08/17 [Last Taken Unknown] Aspirin [Aspirin 81mg (*)] 81 mg PO DAILY 02/08/17 [Last Taken 02/07/17] Calcium Carbonate [Oyster Shell Calcium 500 mg (*)] 500 mg PO DAILY 02/08/17 [ Last Taken Unknown] Cyanocobalamin [Vitamin B12 (*)] 1,000 mcg PO DAILY 02/08/17 [Last Taken Unknown ] Hydrocortisone/Iodoquinol [Hydrocortisone-Iodoquinol Crm] 1 mariluz TP DAILY [Last Taken Unknown] Ibuprofen [Motrin (*)] 200 mg PO DAILY PRN 02/08/17 [Last Taken Unknown] Ipratropium 0.06% Nasal [Atrovent 0.06% Nasal (RX)] 2 sprays EACHNARE BID [Last Taken 02/07/17 21:00] Multivitamins [Multivitamin (*)] 1 each PO DAILY 02/08/17 [Last Taken Unknown] - NPO status NPO Since - Liquids (Date): 02/09/17 NPO Since - Liquids (Time): 00:00 NPO Since - Solids (Date): 02/09/17 NPO Since - Solids (Time): 00:00 - Anes Hx Anes Hx: no prior problems - Smoking Hx Smoking Status: Never smoked Marijuana use: Yes - Alcohol Use Alcohol Use: Occasionally (3 drinks/week) - Family Anes Hx Family Anes Hx: none ANE Labs/Vital Signs - Labs Result Diagrams: 02/09/17 04:27 02/09/17 04:27 - Vital Signs Blood Pressure: 110/69 Heart Rate: 71 Respiratory Rate: 16 O2 Sat (%): 96 Height: 180.34 cm Weight: 72.575 kg ANE Physical Exam - Airway Neck exam: FROM Mallampati Score: Class 3 Mouth exam: normal dental/mouth exam - Pulmonary Pulmonary: clear to auscultation - Cardiovascular Cardiovascular: regular rate and rhythym - ASA Status ASA Status: III ANE Anesthesia Plan Anesthesia Plan: GA with mask
[2017-02-09] MEDS ORDERED: PROPOFOL 200 MG/20 ML VIAL ONE (10:06)
[2017-02-09] MEDS ORDERED: LR 1,000 ML IV ONE (10:14)
[2017-02-09] MEDS ORDERED: NALOXONE HCL 0.4 MG/ML INJ IVP PRN (10:36)
--- NOTE | 2017-02-09 11:29 | GIREPORT ---
[facility] - Endoscopy Department Patient Name: Calderon Ybarra Procedure Date: 02/09/2017 9:32 AM Patient Type: Inpatient Attending MD/ ER Physician: Jeovanny Panda MD Procedure: Upper GI endoscopy Indications: Melena, Acute post hemorrhagic anemia Providers: Jeovanny Panda MD Medicines: Propofol per Anesthesia Complications: No immediate complications. Description of Procedure: After obtaining informed consent, the endoscope was passed under direct vision. Throughout the procedure, the patient's blood pressure, pulse, and oxygen saturations were monitored continuously. The Endoscope was intro duced through the mouth, and advanced to the second part of duodenum. The [facility] er GI endoscopy was accomplished without difficulty. The patient tolerated th e procedure well. Findings: One cratered esophageal ulcer with oozing blood and stigmata of recent bleeding was found at the gastroesophageal junction. The lesion was 10 mm in largest dimension. For hemostasis, two hemostatic clips were successful ly placed. There was no bleeding at the end of the procedure. A small hiatal hernia was present. The entire examined stomach was normal. The examined duodenum was normal. Estimated Blood Loss: Estimated blood loss: none. Post Op Diagnosis: - Bleeding esophageal ulcer. Clips were placed. - Small hiatal hernia. - Normal stomach. - Normal examined duodenum. - No specimens collected. Recommendation: - [facility]. - Clear liquid diet today. - Use Protonix (pantoprazole) 40 mg PO BID for 2 months. - Serial H/H. Attending Participation: I personally performed the entire procedure. Jeovanny Panda MD Jeovanny Panda MD 02/09/2017 11:29:19 AM This report has been signed electronicallyJoharvinder Panda MD Number of Addenda: 0 Note Initiated On: 02/09/2017 9:32 AM [email or web address]
[2017-02-09] MEDS: IPRATROPIUM 0.06% NASAL SPRAY EACHNARE SCH ×2 (11:35→22:30)
[2017-02-09 12:58] LABS: HEMATOCRIT 33.9 % (40.0-51.0); HEMOGLOBIN 11.1 g/dL (13.7-17.5)
--- NOTE | 2017-02-09 13:57 | GCON ---
[f rep st] CONSULTATION GI CONSULTATION DATE OF CONSULTATION: 02/08/2017 REASON FOR CONSULTATION: Melena and post hemorrhagic anemia. HISTORY OF PRESENT ILLNESS: Calderon is an 81-year-old gentleman who was admitted to the hospital last night with melena. I was asked to see him by Dr. Curry for GI consultation. The patient states that he has developed occasional black stool over the last week, which has been watery. He has denied any heartburn, indigestion, dysphagia, or abdominal pain. He does take a baby aspirin daily and takes 800 mg of ibuprofen at night for sleep. He has done so for over a year. He does have a history of dysphagia and underwent an esophagogastroduodenoscopy by Dr. Sajan Berg on 07/08/2015 at which time he was noted to have esophagitis. His last colonoscopy was performed on 05/29/[address] Berg at which time he was noted to have left-sided diverticulosis. He does have a remote history of colon polyps. MEDICATIONS: Prior to admission included, atenolol, anagrelide, Cialis p.r.n., simvastatin, triazolam, Uroxatral, tamsulosin, clonazepam, finasteride. ALLERGIES: He has no known drug allergies. PAST MEDICAL HISTORY: Significant for hypertension, gout, history of on known hematologic disorder with chronic thrombocytosis and leukocytosis and benign prostatic hypertrophy. PAST SURGICAL HISTORY: Significant for EGD in 2015 and colonoscopy in 2012 as noted above. FAMILY HISTORY: Negative for GI malignancies or PUD. SOCIAL HISTORY: He does not consumes a significant quantity of alcohol. He does not smoke tobacco. He is and resides with his spouse in [place]. He is retired. REVIEW OF SYSTEMS: Were significant for melena prior to admission, but otherwise negative for comprehensive review of systems. EXAMINATION: VITAL SIGNS: Today, temperature 36.6 Celsius, pulse 66 and regular, blood pressure is 94/47, respiratory rate 19, O2 saturation 96% on room air. GENERAL: A well-developed, well-nourished male in no apparent distress. INTEGUMENT: Clear. Nail beds pale. HEENT: Head atraumatic, normocephalic. Pupils equal, round, reactive to light. EOMs were intact. Sclerae nonicteric. Nares were patent. Mucous membranes moist. Dentition fair. NECK: Supple. Trachea was midline. LYMPHATICS: No cervical or axillary adenopathy. PULMONARY: Lungs were clear to percussion and auscultation. CARDIOVASCULAR: Regular rhythm and rate. Normal S1, S2 without murmur. Peripheral pulses strong bilaterally. No pedal edema. GASTROINTESTINAL: Abdomen supple, positive bowel sounds. No liver or spleen tip palpable. No masses or tenderness noted. No fluid wave noted. EXTREMITIES : Without deformity. NEUROLOGIC: Patient was alert, oriented x3. There were no focal neurologic deficits. LABS: Hemoglobin on admission 12.5 with hydration. Hemoglobin is 9.5 this morning. Hematocrit was 38.1 on admission, now 29.4. His white count 24.58 on admission and 17.25 today. His platelet count 160,000. Pro-time 16.0, INR 1.26. Electrolytes normal with BUN 65, creatinine 1.3. LFTs normal. Stool is Hemoccult positive. IMPRESSION: 1. Gastrointestinal bleed with melena and post hemorrhagic anemia-likely upper gastrointestinal source and likely chronic non-steroidal anti-inflammatory drug use as a contributing factor. 2. Unclear hematologic abnormality with history of chronic thrombocytosis and leukocytosis with continued leukocytosis, albeit platelets normalized. 3. Essential hypertension. 4. Gout. 5. Benign prostatic hypertrophy. RECOMMENDATIONS: 1. IV PPI drip. 2. Serial H and H. 3. Would recommend an esophagogastroduodenoscopy urgently today due to the patient's interval drop in hemoglobin. Due to the patient's advanced age, would recommend this be performed with propofol anesthesia due to higher risk of complications. /[id number]/MODL MTDD
--- NOTE | 2017-02-09 17:27 | ASMTCMCOM ---
CM Note CM Note Notes: Spoke w/RN, anticipate pt will dc home w/support of when medically stable. CM available for any changes. Date Signed: 02/09/2017 05:27 PM Electronically Signed By:Haritha Perla RN
[2017-02-09] MEDS: TRIAZOLAM 0.25 MG TAB PO PRN (19:38)
[2017-02-10 04:53] LABS: HEMATOCRIT 26.9 % (40.0-51.0); HEMOGLOBIN 8.6 g/dL (13.7-17.5)
[2017-02-10 07:58] VITALS: RESP 16
[2017-02-10] MEDS: ALLOPURINOL 300 MG TAB PO SCH (08:11)
[2017-02-10] MEDS: ANAGRELIDE HCL 0.5 MG PO SCH (08:11)
[2017-02-10] MEDS: ATENOLOL 50 MG TAB PO SCH (08:11)
[2017-02-10] MEDS: PANTOPRAZOLE SODIUM 40 MG VIAL IVP SCH (08:12)
[2017-02-10] MEDS: TAMSULOSIN HCL 0.4 MG CAP PO SCH (08:12)
[2017-02-10] MEDS: FINASTERIDE 5 MG TAB PO SCH (08:12)
--- NOTE | 2017-02-10 08:56 | POSTANESTH ---
Post Anesthetic Evaluation Cardiovascular Status: Similar to Pre-Op Cond Respiratory Status: Similar to Pre-op Cond. Level of Consciousness/Mental Status: Can Participate in Eval Pain Control: Adequate, Prn Tx Ordered Nausea/Vomiting Control: Adequate, Prn Tx Ordered Complications Possibly Related to Anesthesia: None Noted ([id number])
--- NOTE | 2017-02-10 09:10 | HOSPPROG ---
Hospitalist Progress Note Assessment/Plan: Patient is an 81 y/o male who has had some intermittent melena. Today is my first encounter w the patient, chart reviewed. *Upper GI bleed -h/h have trended down -s/p endoscopy which showed an esophageal ulcer, small hiatal hernia -will need ppi bid x 2 months *anemia -H & H dropped overnight -will recheck, cont cl liquids *HTN -107/41 *leukocytosis -has been high since May -should get further f/u with PCP in OP setting *plan. recheck h/h and if stable; dc home and cont ppi x2 months/repeat labs w his pcp in one week Subjective: Nicholas is feeling well, no complaints. Objective: Vital Signs Temp Pulse Resp BP Pulse Ox 36.9 C 80 16 107/41 L 95 02/10/17 07:56 02/10/17 08:11 02/10/17 07:56 02/10/17 08:11 02/10/17 07:56 Laboratory Results 02/10/17 04:31 02/09/17 02/10/17 02/11/17 05:59 05:59 05:59 Intake Total 100 Balance 100 PT 16.0 SEC (12.0-15.0) H 02/08/17 13:05 INR 1.26 (0.83-1.16) H 02/08/17 13:05 - Physical Exam Constitutional: no apparent distress, appears nourished, not in pain Eyes: PERRL Ears, Nose, Mouth, Throat: hearing normal Cardiovascular: regular rate and rhythym Respiratory: no respiratory distress Gastrointestinal: normoactive bowel sounds Skin: warm Musculoskeletal: full muscle strength Neurologic: AAOx3 Psychiatric: interacting appropriately, not anxious ICD10 Worksheet Patient Problems: Problems Problem Status Onset Upper GI bleed Acute
[2017-02-10 09:48] LABS: HEMATOCRIT 30.2 % (40.0-51.0)
[2017-02-10] MEDS: IPRATROPIUM 0.06% NASAL SPRAY EACHNARE SCH (10:11)
--- NOTE | 2017-02-10 10:33 | PDMN ---
Medical Necessity Medical necessity: change to IP; los>2mn for UGIB, w/h&h trending down s/p EGD; requires further monitoring r/t significant blood loss, advancement of diet when stable; comorbid HTN, heme disease w/elevated wbc, plt; per order and progress note 02/09/17
[2017-02-10 11:09] VITALS: BP 109/50; PULSE 78; TEMP 98; O2SAT 98
--- NOTE | 2017-02-10 18:10 | ASDISCHSUM ---
Discharge Information Plan Status:Home with No Needs Medically Cleared to Leave: Discharge Date:02/10/2017 11:57 AM CM D/C Disposition:Home, Routine, Self-Care ADT D/C Disposition:Home, Routine, Self-Care Projected Discharge Date:02/10/2017 11:57 AM Transportation at D/C: Discharge Delay Reason: Follow-Up Date:02/10/2017 11:57 AM Discharge Slot: Final Diagnosis: Placement Information Patient Contact Information Contact Name:MARISA Relationship: Address:[address] City:[place] Alternate Phone: [facility]/Zip Code:[place] [address] Email: Financial Information Financial Class: Primary Plan Desc:MEDICARE INPATIENT Primary Plan Number:[id number] Secondary Plan Desc:[employer]OT[employer] PPO [employer] Secondary Plan Number:[id number] Assessment Information [facility] CM Progress Note CM Note CM Note Notes: Spoke w/RN, anticipate pt will dc home w/support of when medically stable. CM available for any changes. Date Signed: 02/09/2017 05:27 PM Electronically Signed By:Haritha Perla RN Intervention Information Intervention Type:*CHAVEZ-Signed Date of Service:02/09/2017 11:58 AM Patient Type:Observation Staff Member:Digna Parikh Hours: Discipline: Severity: Comment: Intervention Type:*Occurence 72 Date of Service:02/10/2017 02:50 PM Patient Type:Inpatient Staff Member:ALONZO Garces, Phyllis Hours: Discipline: Severity: Comment:
--- NOTE | 2017-02-11 02:44 | GDS ---
[f rep st] DISCHARGE SUMMARY DISCHARGE DIAGNOSES: 1. Upper gastrointestinal bleed. 2. Anemia from this. 3. Hypertension. 4. Leukocytosis. CONSULTATION: Jeovanny Panda MD, with [facility]. HISTORY OF PRESENT ILLNESS: Briefly, the patient is an 81-year-old male with no previous history of GI bleeds. He had 1 week of occasional melena. He also had some watery type stools. He takes ibuprofen. Also, he is on aspirin. He was seen and evaluated by Dr. Panda and on 02/09, he had an upper GI endoscopy, which showed a bleeding esophageal ulcer. Clips were placed. It is also noted that he had a small hiatal hernia. He was treated with clear liquids and PPI. The recommendation is for him to stay on a PPI for the next 2 months. Also told him to stop aspirin and any type of NSAIDs. HOSPITAL COURSE: 1. Upper GI bleed. Continue PPI twice daily x2 months. 2. Anemia. Stayed on clear liquids initially, tolerating a regular diet. Hemoglobin and hematocrit stable on discharge. 3. Hypertension. Blood pressure is 107/41. 4. Leukocytosis. I reviewed his previous records. This has been high since May. Recommended that he get further followup and evaluation in regard to this. DISCHARGE CONDITION: Stable. Blood pressure is 107/41, respiratory rate is 16 , pulse is 80, temperature 36.9 Celsius, O2 saturation on room air 95%. MEDICATIONS AT DISCHARGE: Please see the EMR. DISCHARGE INSTRUCTIONS: 1. To stop aspirin and NSAIDs. 2. Further followup with his primary care provider in regard to his elevated white blood cell count. 3. Stay on Protonix twice daily for the next 2 months. /[id number]/MODL MTDD
--- NOTE | 2017-02-14 13:00 | PQFORM ---
PHYSICIAN QUERY FORM Needs Your Response This query form is being sent to you to assure this patient record is coded properly. Please respond to the question below: RESIDENT CARE ASSOCIATE QUESTION: Carmen, On your discharge summary, you state upper gastrointestinal bleed (from bleeding esophageal ulcer) and anemia from this. Can this anemia be further defined as: Acute blood loss anemia Chronic blood loss anemia Unspecified anemia Other Thank you, ARGELIA Marroquin HIM Coding INSTRUCTIONS FOR RESPONSE: Answer question by clicking on the "Edit Document" button. Move cursor to area below the stars. When complete, hit "Save." Click on the "Sign" button, then click "Sign" again. Type in your PIN and hit "Enter." Acute blood loss anemia MTDD
== END 2017-02-10 11:57 | disposition home or self-care (01) | DRG 381 ==
LOC: F3E 18:42 → OBSVTOIN 02-09 16:03
PROVIDERS: ADMIT Internal Medicine; ATTEND Internal Medicine
PROC: 0W3P8ZZ Control Bleeding in Gastrointestinal Tract, Via Natural or Artificial Opening Endoscopic (ICD-10-PCS; principal; 2017-02-09 09:45)
DX: K22.11 Ulcer of esophagus with bleeding (principal); D62 Acute posthemorrhagic anemia; I10 Essential (primary) hypertension; K44.9 Diaphragmatic hernia without obstruction or gangrene
CPT/HCPCS: 96374; G0378; J0171; J2704

== ENCOUNTER → 2017-11-06 | Outpatient (CLI) | payer OTHER ==
[~2017-11-06] MED LIST: IOPAMIDOL (ISOVUE-300) 100 ML BTL ONE
== END ==
LOC: FIMAGING 10:15
PROVIDERS: ATTEND Physician Assistant
DX: K31.9 Disease of stomach and duodenum, unspecified (principal); R16.1 Splenomegaly, not elsewhere classified
CPT/HCPCS: 74177; Q9967; 82565-PO

== ENCOUNTER → 2018-02-14 | Outpatient (CLI) | payer OTHER | LOC: FIMAGING 18:37 | PROVIDERS: ATTEND Family Medicine | DX: G31.9 Degenerative disease of nervous system, unspecified (principal); R90.82 White matter disease, unspecified ==

== ENCOUNTER → 2018-03-29 | Outpatient (CLI) | payer OTHER | LOC: FIMAGING 13:42 | PROVIDERS: ATTEND Family Medicine | DX: R60.0 Localized edema (principal); M79.604 Pain in right leg ==

== ENCOUNTER 2018-08-16 08:17 | Day surgery (SDC) | payer OTHER | END 2018-08-16 14:52 | disposition home or self-care (01) | LOC: FSGY 08:17 ==